=== PATIENT | male | born 1990 | race African-American/Black ===

== ENCOUNTER 2019-07-04 23:11 | Emergency (ER) | payer SELFPAY ==
[~2019-07-04] VITALS: Ht 177.8 cm; Wt 88.0 kg
[2019-07-04 23:32] VITALS: BP 132/85
[2019-07-05] MEDS ORDERED: KETOROLAC 30MG/ML VIAL IM ONE (02:00)
== END 2019-07-05 02:34 | disposition home or self-care (01) ==
LOC: ER 23:11
DX: M10.071 Idiopathic gout, right ankle and foot (principal)
CPT/HCPCS: 96372; 99283; J1885